=== PATIENT | male | born 1955 | race Caucasian/White ===

== ENCOUNTER → 2024-02-05 09:21 | Outpatient (REF) | payer MEDICARE, OTHER, SELFPAY | LOC: HWRAD 09:21 | PROVIDERS: ATTENDING PHYSICIAN Nurse Practitioner Family; FAMILY PHYSICIAN Internal Medicine Geriatric Medicine | DX: E78.5 Hyperlipidemia, unspecified (principal) | CPT/HCPCS: 75571 ==

== ENCOUNTER → 2024-02-12 14:11 | Outpatient (REF) | payer MEDICARE, OTHER, SELFPAY | LOC: RCS 14:11 | PROVIDERS: ATTENDING PHYSICIAN Nurse Practitioner Family | DX: R93.1 Abnormal findings on diagnostic imaging of heart and coronary circulation (principal) | CPT/HCPCS: 93017; 93350 ==